=== PATIENT | female | born 1950 | race Caucasian/White ===

== ENCOUNTER 2022-03-19 08:34 | Emergency (ER) | payer MEDICARE ==
[2022-03-19 09:06] LABS: Bilirubin Neg (Negative); Blood, Urine Negative (Negative); Clarity Clear (Clear); Glucose, Urine (Dipstick) Normal (Negative); Ketone, Urine Negative (Negative); Leukocyte Negative (Negative); Nitrite Negative (Negative); Protein, Urine (Dipstick) Negative (Neg-Trace); Specific Gravity, Urine 1.015 (1.005-1.030); Urobilinogen Normal mg/dL (Less than 2); pH, Urine 6.5 (5.0-9.0)
[2022-03-19] MEDS ORDERED: Ketorolac Tromethamine 30 MG/ML VIAL ONE (09:34)
[2022-03-19 09:48] LABS: #Basophils 0.1 10x3/uL (0.0-0.2); #Eosinphils 0.1 10x3/uL (0.0-0.5); #Monocytes 0.6 10x3/uL (0.0-1.1); #Neutrophils 5.4 10x3/uL (1.5-8.4); %Basophils 0.6 % (0.0-2.0); %Eosinophils 0.6 % (0.0-6.0); %Lymphocytes 27.9 % (18.0-47.0); %Monocytes 7.2 % (0.0-10.0); %Neutrophils 63.2 % (40.0-75.0); Hemoglobin 14.4 g/dL (12.0-15.5); Mean Corpuscular HGB CONC 34.7 g/dL (32.0-36.0); Mean Corpuscular Volume 92.2 fl (81.6-98.3); Mean Platelet Volume 8.8 fl (7.4-10.4); Platelet Count 281 10x3/uL (150-450); RBC Distribution Width 13.1 % (11.5-14.5); White Blood Cell (WBC) Count 8.6 10x3/uL (3.5-10.5)
[2022-03-19 10:01] LABS: ALT (SGPT) 15 U/L (8-55); AST (SGOT) 20 U/L (5-34); Alkaline Phosphatase 38 U/L (40-110); Anion Gap 14 mmol/L (10-20); BUN (Urea Nitrogen) 16 mg/dL (9.8-20.1); Bilirubin, Total 0.6 mg/dL (0.2-1.2); Calc. Creatinine Clearance 0 mL/min (70-130); Calcium 9.7 mg/dL (7.8-10.44); Carbon Dioxide 24 mmol/L (23-31); Chloride 104 mmol/L (98-107); Estimated GFR 63; Globulin 3.1 g/dL (2.4-3.5); Glucose 95 mg/dL (83-110); Potassium 4.1 mmol/L (3.5-5.1); Protein, Total 7.1 g/dL (5.8-8.1); Sodium 138 mmol/L (136-145)
== END 2022-03-19 10:32 | disposition home or self-care (01) ==
LOC: CSHERS 08:34
DX: S39.012A Strain of muscle, fascia and tendon of lower back, initial encounter (principal); I10 Essential (primary) hypertension; X58.XXXA Exposure to other specified factors, initial encounter
CPT/HCPCS: 36415; 74176; 80053; 81003; 85025; 96374; J1885

== ENCOUNTER 2022-06-11 12:07 | Outpatient (CLI) | payer MEDICARE | END 2022-06-11 12:08 | disposition home or self-care (01) | LOC: CSHMAMMO 12:07 | PROVIDERS: ATTEND Family Medicine | DX: Z12.31 Encounter for screening mammogram for malignant neoplasm of breast (principal); R92.1 Mammographic calcification found on diagnostic imaging of breast; Z91.89 Other specified personal risk factors, not elsewhere classified; Z98.890 Other specified postprocedural states | CPT/HCPCS: 77063; 77067 ==

== ENCOUNTER 2022-11-09 18:45 | Emergency (ER) | payer MEDICARE ==
[2022-11-09] MEDS ORDERED: Aspirin Chewable 81 MG TAB ONE (19:01)
[2022-11-09 19:14] LABS: #Eosinphils 0.1 10x3/uL (0.0-0.5); #Neutrophils 8.2 10x3/uL (1.5-8.4); %Basophils 0.2 % (0.0-2.0); %Eosinophils 0.6 % (0.0-6.0); %Lymphocytes 23.8 % (18.0-47.0); %Monocytes 8.3 % (0.0-10.0); %Neutrophils 66.8 % (40.0-75.0); Hemoglobin 13.2 g/dL (12.0-15.5); Mean Corpuscular HGB CONC 33.8 g/dL (32.0-36.0); Mean Corpuscular Hemoglobin 30.8 pg (27.0-33.0); Mean Corpuscular Volume 91.1 fl (81.6-98.3); Mean Platelet Volume 9.6 fl (7.4-10.4); Platelet Count 264 10x3/uL (150-450); RBC Distribution Width 13.7 % (11.5-14.5); Red Blood Cell (RBC) Count 4.28 10x6/uL (3.90-5.03); White Blood Cell (WBC) Count 12.3 10x3/uL (3.5-10.5)
[2022-11-09] MEDS ORDERED: Ondansetron PF 4 MG/2 ML Vial ONE (19:23)
[2022-11-09 19:28] LABS: ALT (SGPT) 24 U/L (8-55); AST (SGOT) 72 U/L (5-34); Albumin 4.1 g/dL (3.4-4.8); Alkaline Phosphatase 44 U/L (40-110); Anion Gap 16 mmol/L (10-20); BUN (Urea Nitrogen) 18 mg/dL (9.8-20.1); Bilirubin, Total 0.4 mg/dL (0.2-1.2); Calc. Creatinine Clearance 0 mL/min (70-130); Calcium 8.9 mg/dL (7.8-10.44); Carbon Dioxide 23 mmol/L (23-31); Chloride 102 mmol/L (98-107); Estimated GFR 51; Globulin 3.2 g/dL (2.4-3.5); Glucose 127 mg/dL (83-110); Potassium 2.9 mmol/L (3.5-5.1); Protein, Total 7.3 g/dL (5.8-8.1); Sodium 138 mmol/L (136-145)
[2022-11-09] MEDS ORDERED: Heparin 5,000 UNITS/ML VIAL SLOW IVP SCH (19:30)
[2022-11-09 19:34] LABS: Troponin I 6.406 ng/mL (< 0.028)
== END 2022-11-09 19:28 ==
LOC: CSHERS 18:45
DX: I21.3 ST elevation (STEMI) myocardial infarction of unspecified site (principal); I10 Essential (primary) hypertension; K21.9 Gastro-esophageal reflux disease without esophagitis
CPT/HCPCS: 71045; 80053; 84484; 85025; 93005; 96374; 96375; J1644; J2405

== ENCOUNTER 2022-11-21 14:47 | Outpatient (CLI) | payer MEDICARE | END 2022-11-21 14:48 | disposition home or self-care (01) | LOC: CSHRAD 14:47 | PROVIDERS: ATTEND Internal Medicine Cardiovascular Disease | DX: R06.02 Shortness of breath (principal); R06.00 Dyspnea, unspecified | CPT/HCPCS: 71046 ==

== ENCOUNTER 2022-12-19 09:17 | Outpatient (CLI) | payer MEDICARE | END 2022-12-19 09:18 | disposition home or self-care (01) | LOC: CSHRAD 09:17 | PROVIDERS: ATTEND Internal Medicine Cardiovascular Disease | DX: R06.02 Shortness of breath (principal); R06.00 Dyspnea, unspecified; R93.1 Abnormal findings on diagnostic imaging of heart and coronary circulation | CPT/HCPCS: 71046 ==